=== PATIENT | female | born 1970 | race Caucasian/White ===

== ENCOUNTER 2016-12-20 12:26 | Emergency (ER) | payer OTHER ==
[~2016-12-20 12:26] MED LIST: BUPR300T51 PO; BUPR300T52 PO; CHOL5000 PO; HYDR50CA3 PO; LAMO100T PO; LAMO150T2 PO
[2016-12-20 12:31] VITALS: BP 197/87; PULSE 144; RESP 36; O2SAT 96
--- NOTE | 2016-12-20 12:54 | ED.REPORT ---
HPI-Psychiatric Illness Date of Service Dec 20, 2016 ED Provider: Dr. Diaz The pt is a 46 y/o female with a hx of manic depression, anxiety, suicidal ideation and bipolar disorder who presents to the ED due to suicidal ideation, onset today. She is a tangential historian and does not clearly state if she has a plan. She states "I feel like I in July 2007. I don't know why my body is still living. I just don't want to live." The pt is currently living at a friend's house. She does not want to be discharged and states "It's dangerous for me to be outside. I will not be able to function outside." She denies cough , shortness of breath and any other sx at this time. She has a family history significant for depression, suicide and alcoholism. She states she doesn't expect to live long given her family history. Nursing Notes Stated Complaint: SUICIDAL Chief Complaint: Psychiatric Complaint Nursing Notes Reviewed: Yes (a) Allergies: Coded Allergies: risperidone (Verified Allergy, Severe, Zander's s-me, 11/13/15) Scheduled Bupropion ER (Bupropion ER) 300 Mg Tab.er.24h 300 MG PO DAILY Bupropion ER (Wellbutrin XL) 300 Mg Tab.er.24h 450 MG PO DAILY Cholecalciferol (Vitamin D3) (Vitamin D3) 5,000 Unit Capsule 5,000 UNITS PO DAILY Lamotrigine (Lamotrigine) 150 Mg Tablet 150 MG PO DAILY Lamotrigine (Lamictal) 100 Mg Tablet 150 MG PO DAILY Scheduled PRN Hydroxyzine Pamoate (HydrOXYzine Pamoate) 50 Mg Capsule 50 MG PO Q4H PRN PRN FOR ANXIETY,AGIT, OR INSOMNIA General Time Seen by MD: 12:54 Chief Complaint Suicidal ideation Hx Obtained From: Patient Arrived By: Walk-in Onset Occurred: 5 - 8 hours ago Symptom Duration: Since onset Severity: Current: No pain currently Severity: Maximum: No pain Recent Healthcare: Recent doctor visit Similar Sx Previous: Yes Risk-Psychiatric Illness Suicide Risk Stratification Suicide Risk Factors - Adult: : Close associate suicide: Family Hx of Suicide: Previous attempt: Prior psych admission RF Statements: Risk factors reviewed Past Medical History Past Medical History depression suicidal ideation previous suicide attempt bipolar disorder Past Surgical History denies Family History depression suicide diabetes alcohol abuse Smoking History Never Smoker Social History Alcohol Use: Denies alcohol use Drug Use: Denies drug use Ambulatory Status Independent Review of Systems Respiratory: Denies: Non-productive cough, Shortness of breath Psychiatric: Reports: Depression, Suicidal ideation Complete sys rev & neg: except as marked. Physical Exam Initial Vital Signs Vital Signs (First) Date Time Temp Pulse Resp B/P Pulse Ox O2 Delivery O2 Flow Rate FiO2 12/20/16 12:31 37.1 144 36 197/87 96 Room Air Initial VS: Reviewed Head / Eyes: Atraumatic, Normocephalic Neck: Supple, Non-tender, Full range of motion Respiratory: No respiratory distress Abdomen / GI: Soft, Non-tender, No guarding, No rebound, No distention Extremities: Vascular intact, Neuro intact, No swelling, No tenderness Skin: Warm, Dry, No cyanosis General/Constitutional: Awake, Alert Behavior: Positive: Tearful Neurologic: Oriented X3, Speech NL, No motor deficits, No sensory deficits Psychiatric: Not homicidal, No hallucinations Abnormal Mood/Affect: Positive: Depressed, Labile, Pressured speech Suicidal, unclear plan Cardiovascular: Regular rhythm, Heart sounds NL, No gallop, No murmurs, No rubs Heart Rate / Rhythm: Positive: Tachycardia Interpretation & Diagnostics Lab Results Interpretation Result Diagram: 12/20/16 1341 12/20/16 1341 Test 12/20/16 13:41 White Blood Count 8.7th/mm3 (3.8-10.1) Red Blood Count 4.74mil/mm3 (3.90-5.20) Hemoglobin 13.4g/dL (12.0-15.6) Hematocrit 41.3% (35.0-46.0) Mean Corpuscular Volume 87fL (81-100) Mean Corpuscular Hemoglobin 28.3pg (27.0-35.0) Mean Corpuscular Hemoglobin Concent 32.4% (32.0-37.0) Red Cell Distribution Width 13.3% (12.3-15.4) Platelet Count 262bil/L (150-400) Neutrophils (%) (Auto) 74% (40-74) Lymphocytes (%) (Auto) 20% (14-46) Monocytes (%) (Auto) 6% (4-12) Eosinophils (%) (Auto) 0% (0-5) Basophils (%) (Auto) 0% (0-3) Sodium Level 136mEq/L (134-144) Potassium Level 3.5mEq/L (3.5-5.2) Chloride Level 99mEq/L (97-108) Carbon Dioxide Level 22mmol/L (18-29) Blood Urea Nitrogen 12mg/dL (6-24) Creatinine 0.83mg/dL (0.57-1.00) Estimat Glomerular Filtration Rate 105mL/min (>59) Glucose Level 113mg/dL (60-99) Calcium Level 9.2mg/dL (8.5-10.1) Total Bilirubin 0.2mg/dL (0.0-1.2) Aspartate Amino Transf (AST/SGOT) 15U/L (0-50) Alanine Aminotransferase (ALT/SGPT) 11U/L (0-32) Alkaline Phosphatase 88U/L (25-150) Total Protein 7.0g/dL (6.4-8.4) Albumin 4.1g/dL (3.4-5.0) Thyroid Stimulating Hormone (TSH) 2.710uIU/mL (0.450-4.500) Hold Miguel Top Tube Received (Received) ECG Interpretation ECG Interpretation: Sinus tachycardia. Rate 105. Time: 13:33 Interpreted by: ED physician Re-Eval/Medical Decision Source of Hx: Old records Re-Evaluation/Progress : Time of Eval: 14:40 Re-Evaluation/Progress Note: The social studies department chair states the pt plans to slit her wrists and likely needs ECT. She will contact Crisis Triage in [place] for placement. Counseled Regarding: Diagnosis Discharge & Departure Shift Change Sign-Out Patient Care Transferred: Yes Discussed Complaint(s): Yes Laboratory Evaluation: Lab evaluation discussed Impression: Primary Impression: Suicidal ideation Referrals: Hermelindo Stevenson PA-C (PCP) Care Transferred to: Dr. Cooper Care Transferred at: 15:00 Scribe Attestation Portions of this note were transcribed by Todd Mcfadden. I,, personally performed the history,physical exam and medical decision-making;I reviewed and confirmed the accuracy of the information in the transcribed note. Signed by Michoacano Shell. 12/20/16 copies to: Stevenson, HermelindoDileep Morley PA-C, DO Dec 20, 2016 12:54 Todd Mcfadden Dec 20, 2016 13:13
[2016-12-20] MEDS ORDERED: LORazepam 2 mg Tablet PO ONE (13:20)
[2016-12-20 14:07] LABS: Mean Corpuscular Volume 87 fL (81-100)
[2016-12-20 14:08] LABS: BASOPHILS % (AUTO) 0 % (0-3); EOSINOPHILS % (AUTO) 0 % (0-5); MONOCYTES % (AUTO) 6 % (4-12); Mean Corpuscular Hemoglobin 28.3 pg (27.0-35.0); NEUTROPHILS % (AUTO) 74 % (40-74); Platelet Count 262 bil/L (150-400)
[2016-12-20 16:24] VITALS: BP 119/71; PULSE 87; RESP 20; O2SAT 99
== END 2016-12-20 19:56 | disposition other institution (70) ==
LOC: SED 12:26
DX: R45.851 Suicidal ideations (principal); F32.9 Major depressive disorder, single episode, unspecified; F43.10 Post-traumatic stress disorder, unspecified; F41.9 Anxiety disorder, unspecified; Z91.5 Personal history of self-harm; Z88.8 Allergy status to other drugs, medicaments and biological substances